=== PATIENT | female | born 1970 | race Hispanic/Latino ===

== ENCOUNTER 2024-10-15 18:17 | Inpatient (IN) | payer BC, OTHER ==
[~2024-10-15] VITALS: Ht 160 cm; Wt 92.0 kg
[~2024-10-15 18:17] MED LIST: CYCLOBENZAPRINE10 MG PO; MAALOX MAXIMUM355 ML PO; OMEPRAZOLE20 MG PO; PEPCID20 MG PO
[2024-10-15] MEDS ORDERED: OMEPRAZOLE20 MG PO (19:29)
[2024-10-15] MEDS ORDERED: ondansetron HCL 4 MG/2 ML VIAL IV ONE ×2 (19:30→21:15)
[2024-10-15 19:36] LABS: BASOPHILS 0.7 % (0-2); EOSINOPHILS 2.4 % (0-6); HEMATOCRIT 39.2 % (35.0-50.0); HEMOGLOBIN 13.6 g/dL (12.0-18.0); LYMPHOCYTES 21.5 % (24-44); MCH 30.6 (27-36); MCHC 34.6 g/dl (30-36); MCV 88.3 fl (81-99); MONOCYTES 7.1 % (0-12); NEUTROPHILS 68.3 % (39-80); PLATELET COUNT 231 K/uL (140-440); RBC 4.43 M/ul (4.3-5.7); RDW 13.8 (10.5-15.0)
[2024-10-15 19:43] LABS: ALBUMIN 3.3 g/dL (3.4-5.0); ALBUMIN/GLOBULIN RATIO 0.94 (1.1-2.4); ANION GAP 8.8 (7-21); BILIRUBIN, TOTAL 0.2 ng/dL (0.2-1.0); BUN/CREATININE RATIO 16.85 (6.0-28.6); CALCIUM 8.7 mg/dL (8.5-10.1); CREATININE, SERUM 0.89 mg/dL (0.55-1.02); MAGNESIUM 1.9 mg/dL (1.8-2.4); POTASSIUM 3.8 mmol/L (3.5-5.1); PROTEIN, TOTAL 6.8 g/dL (6.4-8.2)
[2024-10-15 20:43] LABS: BILIRUBIN, URINE NEGATIVE (negative); BLOOD/HGB, URINE SMALL (Negative); KETONE, URINE NEGATIVE (Negative); LEUK ESTERASE, URINE TRACE (negative); NITRITE, URINE NEGATIVE (negative)
[2024-10-15 20:53] LABS: BACTERIA, URINE NONE SEEN /hpf (negative); CASTS, URINE NONE SEEN \\lpf; COLLECTION TYPE, URINE CLEAN CATCH; CRYSTALS, URINE NONE SEEN (0-1+); EPITHELIAL CELLS, URINE SQUAMOUS 3+ /lpf (0-1+); REFLEX CULTURE, URINE No (No); WHITE BLOOD CELLS, URINE 0-1 /HPF (0-5)
[2024-10-15] MEDS ORDERED: SODIUM CHLORIDE 0.9% 1,000 ML IV SCH (21:15)
[2024-10-15] MEDS ORDERED: HYDROmorphone HCL 1 MG/ML SYR IV PRN ×2 (21:15→22:30)
[2024-10-15] MEDS ORDERED: CEFAZOLIN SODIUM 2 GM/20 ML SYR IV ONE (21:30)
[2024-10-15] MEDS ORDERED: FAMOTIDINE 20 MG/ 2 ML VIAL IV ONE (21:30)
[2024-10-15] MEDS ORDERED: LACTATED RINGER'S 1,000 ML IV SCH (22:30)
[2024-10-15] MEDS ORDERED: ondansetron HCL 4 MG/2 ML VIAL IV PRN (22:30)
--- NOTE | 2024-10-15 22:30 | NUR ---
pt ARRIVED TO THE FLOOR VIA STRETCHER. pt TRASFERED SELF TO THE BED. ASSESSMENT AND VITAL SIGNS DONE. AUTO CAMP ATTENDANT USED DASHA([id number]). pt DENIES ANY PAIN AT THIS TIME. IV ASSESSED, WNL. pt DENIES ANY OTHER NEEDS AT THIS TIME. CALL LIGHT WITHIN REACH.
[2024-10-15 22:31] VITALS: BP 131/70
[2024-10-15 23:15] VITALS: BP 131/70
[2024-10-16] VITALS (13 sets, daily range): BP systolic 108–119; BP diastolic 56–83
--- NOTE | 2024-10-16 00:54 | NUR ---
pt RESTING IN THE BED. pt DENIES ANY NEEDS AT THIS TIME. CALL LIGHT WITHIN REACH.
--- NOTE | 2024-10-16 02:19 | NUR ---
IN RM TO DO VITAL SIGNS. pt UP TO THE BR. SBA FOR LINE/TUBE MANAGEMENT. pt DENIES PAIN AT THIS TIME. CALL LIGHT WITHIN REACH. pt BACK TO BED.
--- NOTE | 2024-10-16 04:20 | NUR ---
pt RESTING IN THE BED WITH EYES CLOSED. RR EVEN AND UNLABORED. CALL LIGHT WITHIN REACH.
[2024-10-16] MEDS ORDERED: CEFAZOLIN SODIUM 1 GM/10 ML SYR IV SCH (05:00)
--- NOTE | 2024-10-16 05:05 | NUR ---
IN RM TO DO pt VITAL SIGNS AND ADMINISTER IV ABX. pt C/O 5/10 PAIN. PRN PAIN MEDS ADMINISTERED. pt DENIES ANY OTHER NEEDS AT THIS TIME. CALL LIGHT WITHIN REACH.
--- NOTE | 2024-10-16 07:33 | NUR ---
RECIEVED MORNING REPORT FROM DATABASE MANAGER RN. PT LAYING IN BED AWAKE WITH EYES OPEN. PT ASSISTED INTO THE RESTROOM SBA. PT TOLERATED AMBULATION WELL. PT RETURNED TO BED AND HAS NO CONCERNS AT THIS TIME CALL LIGHT WITHIN REACH.
--- NOTE | 2024-10-16 08:21 | NUR ---
PT LAYING IN BED WITH EYES OPEN PT REPORTS NO CURRENT NEEDS AT THIS TIME. PT REPORTS THEY ARE NOT IN ANY PAIN. PT CALL LIGHT WITHIN REACH.
--- NOTE | 2024-10-16 08:55 | NUR ---
PATIENT SLEEPING IN BED AT THIS TIME. ELECTROMECHANICAL ASSEMBLY TECHNICIAN CHARTED VITALS AND I&O'S. CALL LIGHT WITHIN REACH, NO FURTHER NEEDS AT THIS TIME.
[2024-10-16] MEDS ORDERED: CENTRUM ADULTS1 EACH PO (09:10)
[2024-10-16] MEDS ORDERED: VITAMIN B COMP1 EAC1 PO (09:10)
--- NOTE | 2024-10-16 09:10 | NUR ---
MED REC COMPLETE
--- NOTE | 2024-10-16 10:01 | NUR ---
THIS RN AND CELSA SANDERS ENTERED THE PT ROOM WITH MD BUCKLEY. MD BUCKLEY EXPLAINED TO THE PATIENT THEIR CURRENT ILLNESS AND THE POC MOVING FORWARD. THE PT WAS AGREEABLE TO THE POC MOVING FORWARD. PT HAS NO OTHER REQUESTS AT THIS TIME CALL LIGHT WITHIN REACH.
[2024-10-16] MEDS ORDERED: FAMOTIDINE 20 MG/ 2 ML VIAL IV SCH (10:08)
[2024-10-16] MEDS ORDERED: KETOROLAC TROMETHAMINE 30 MG/ML VIAL IV PRN (10:15)
[2024-10-16] MEDS ORDERED: LACTATED RINGER'S 1,000 ML IV SCH (10:15)
[2024-10-16] MEDS ORDERED: MORPHINE SULFATE 10 MG/ML VIAL IV PRN (10:15)
[2024-10-16] MEDS ORDERED: ondansetron HCL 4 MG/2 ML VIAL IV PRN (10:15)
[2024-10-16 10:26] LABS: BASOPHILS 0.8 % (0-2); EOSINOPHILS 1.3 % (0-6); HEMATOCRIT 39.3 % (35.0-50.0); HEMOGLOBIN 13.2 g/dL (12.0-18.0); LYMPHOCYTES 27.4 % (24-44); MCH 30.2 (27-36); MCHC 33.6 g/dl (30-36); MCV 89.8 fl (81-99); NEUTROPHILS 62.5 % (39-80); PLATELET COUNT 211 K/uL (140-440); RBC 4.38 M/ul (4.3-5.7); RDW 13.6 (10.5-15.0)
[2024-10-16 10:45] LABS: ALBUMIN 2.9 g/dL (3.4-5.0); ALBUMIN/GLOBULIN RATIO 0.88 (1.1-2.4); ANION GAP 6.8 (7-21); BILIRUBIN, TOTAL 0.8 ng/dL (0.2-1.0); BUN/CREATININE RATIO 10.29 (6.0-28.6); CALCIUM 8.3 mg/dL (8.5-10.1); CREATININE, SERUM 0.68 mg/dL (0.55-1.02); POTASSIUM 3.8 mmol/L (3.5-5.1); PROTEIN, TOTAL 6.2 g/dL (6.4-8.2)
--- NOTE | 2024-10-16 11:00 | NUR ---
CALLED PCP FOR MEDICAL RECORDS IN [place]. CLINIC SAID PT DOES NOT SEE A MERRY BUNN, BUT SEE A MD NAMED MITCH WHO NO LONGER WORKS THERE. PT WAS LAST SEEN AT THE CLINIC IN [place]. MEDICAL RECORDS AT THE CLINIC ARE NOT IN THEIR OFFICE TODAY. ONCE TRANSFERRED A VOICEMAIL WAS LEFT. NUMBER TO CLINIC IS [phone].
--- NOTE | 2024-10-16 11:12 | NUR ---
PATIENT IN BED AT THIS TIME. IC DESIGNER GATE ARRAYS ASSISTED PATIENT INTO BATHROOM AND THEN BACK TO BED. CALL LIGHT WITHIN REACH, NO FURTHER NEEDS AT THIS TIME.
--- NOTE | 2024-10-16 13:32 | NUR ---
PT LAYING IN BED AWAKE PT REPORTS THAT MEDICATION HELPED WITH HEADACHE AND REPORTS NO PAIN. PT IS WITH HER BEDSIDE. PT WAS ALSO GIVEN INFORMATION ON HER SURGERY IN [place]. PT HAS CALL LIGHT WITHIN REACH.
[2024-10-16] MEDS ORDERED: CEFAZOLIN SODIUM 2 GM/20 ML SYR IV SCH (14:00)
--- NOTE | 2024-10-16 14:21 | NUR ---
UR CLINICAL REVIEW: [facility], MEETS OBS [facility]15/24 @ 2125 ORDER MATCHES REG WILL SEND CLINICALS FOR AUTH WHEN REQUESTED. DC PLAN PENDING. 10/17/24
--- NOTE | 2024-10-16 14:30 | NUR ---
Spoke with pt and spouse using [employer] Service Team Member [phone] with Jatinder garrido. Pt lives in [place] in a house with 3 steps. She lives with her spouse and her son. Both can help her if needed after dc. She does not use any DME. She states they are struggeling as they have not worked in 2 months. She does use the food bank at times. They do not have SNAP. She is not aware of [employer]. They do not have shut off notices, but are behind on payments. I will get her infor for SNAP for number to apply over the phone, BLAZE, and call the [facility] to schedule a an appt and get a new pcp as hers left in
--- NOTE | 2024-10-16 14:33 | NUR ---
PT SITTING IN BED AWAKE WITH BED SIDE. PT DOESNT EXPRESS ANY PAIN AT THIS TIME. CALL LIGHT WITHIN REACH.
--- NOTE | 2024-10-16 14:51 | NUR ---
REPORT RECEIVED FROM CELSA MOLINA.
--- NOTE | 2024-10-16 15:12 | NUR ---
ECHO IS IN THE ROOM AT THIS TIME. PATIENT FAMILY MEMBER IS SITTING ON THE COUCH. CALL LIGHT AND PERSONAL BELONGINGS ARE WITHIN REACH.
[2024-10-16 15:26] LABS: TSH, 3RD GENERATION 0.614 uIU/mL (0.358-3.740)
--- NOTE | 2024-10-16 15:45 | NUR ---
ATTEMPTED TO CONTACT PCP OFFICE - [facility] TO GET RECORDS PER REQUESTED BY DR. BUCKLEY. UNABLE TO SPEAK WITH CLINIC, WILL ATTEMPT AGAIN TOMORROW. DID LEAVE VM TO SEE IF RECORDS COULD BE FAXED FOR OUR RECORDS FOR TOMORROW.
[2024-10-16] MEDS ORDERED: ACETAMINOPHEN 325 MG TAB PO PRN (16:00)
--- NOTE | 2024-10-16 16:10 | NUR ---
FULL ASSESSMENT COMPLETE AND DOCUMENTED IN THE CHART. PATIENT USES FAMILY MEMBER AN PSYCHIC READER THROUGHOUT THE PATIENT INTERACTION. PATIENT IS ALERT AND ORIENTED WITH NO COMPLAINTS OF PAIN. SENSATION INTACT WITH NO COMPLAINTS OF NUMBNESS OR TINGLING. PATIENT IS ON TELE #5. PATIENT IS BRADYCARDIC. OCCASSIONAL GALLOP AUSCULTATED. RADIAL PULSES ARE STRONG BILATERALLY. PATIENT IS CURRENTLY ON ROOM AIR WITH NO COMPLAINTS OF SOB. PATIENT IS NPO. BOWEL TONES ARE ACTIVE IN ALL FOUR QUADRANTS. RUQ TENDER AND GUARDED. MILD DISTENTION NOTED. LAST BM WAS 10/15/24. IV IN THE RAC FLUSHED WITH 10 ML NORMAL SALINE. LR IS INFUSING AT 85 ML/HR. SKIN INTACT. MICHEL PETERS ASSISTED PATIENT TO THE BATHROOM. PATIENT WITH VISITOR IN THE ROOM. PATIENT STATED NO FURTHER NEEDS AT THIS TIME. CALL LIGHT AND PERSONAL BELONGINGS ARE WITHIN REACH.
--- NOTE | 2024-10-16 16:18 | NUR ---
PATIENT IN BED AT THIS TIME. DATABASE REPORT WRITER WENT INTO PATIENTS ROOM TO ASSIST PATIENT TO BATHROOM. DATABASE REPORT WRITER THEN ASSISTED PATIENT BACK TO BED. CALL LIGHT WITHIN REACH, NO FURTHER NEEDS AT THIS TIME.
--- NOTE | 2024-10-16 17:59 | NUR ---
PATIENT IS LYING IN BED WITH THE LIGHT OFF. PATIENT WITH EYES OPEN AND RESPIRATIONS ARE EVEN AND UNLABORED. CALL LIGHT AND PERSONAL BELONGINGS ARE WITHIN REACH.
--- NOTE | 2024-10-16 18:43 | NUR ---
RN TOOK PATIENT IN CLEAR LIQUIDS AT THIS TIME DUE TO ORDER BEING CHANGED. PATIENT TO THEN BE NPO AT MIDNIGHT. PATIENT PROVIDED A SANDWICH BOX. PATIENT STATED NO FURTHER NEEDS AT THIS TIME. CALL LIGHT AND PERSONAL BELONGINGS ARE WITHIN REACH.
--- NOTE | 2024-10-16 19:28 | NUR ---
Received report from CELSA Bernabe. Pt resting quietly in bed, denies needs at this time.
--- NOTE | 2024-10-16 20:30 | NUR ---
SENIOR ACCOUNT DIRECTOR OTBAINED VITALS AND OUTPUT. PT STATES NO NEEDS AT THIS TIME. CALL LIGHT WITHIN REACH.
--- NOTE | 2024-10-16 21:00 | NUR ---
PT RESTING COMFORTABLY IN BED. DROWSY. LIBYAN SPEAKING. DENIES PAIN. LSC. HRR, RONNIE. TELEMETRY IN PLACE. BT HYPO, ABD MILDLY DISTENDED, MILDLY TENDER TO PALPATION. NPO FOR PROCEDURE TOMORROW. DENIES ANY NAUSEA. VOIDS WNL. IV RAC W/ LR @ 85MLS/HR. FAMILY AT BEDSIDE.
--- NOTE | 2024-10-16 22:33 | NUR ---
PT SLEEPING SOUNDLY, APPEARS COMFORTABLE. CALL LIGHT WITHIN REACH.
--- NOTE | 2024-10-16 22:49 | EKG ---
[facility] [address] [place], [place] [address] Signed Marked sinus bradycardia Abnormal ECG No previous ECGs available Confirmed by Jililan Carter DO ([id number]) on 10/16/2024 10:48:49 PM Electronically Signed By: JILLIAN CARTER DO 10/16/24 2249 PATIENT NAME: ENOCH BLEDSOE Electrocardiogram DATE OF : 74 PHYSICIAN: JILLIAN CARTER DO REPORT #: [id number] REPORT IS CONFIDENTIAL AND NOT TO BE RELEASED WITHOUT AUTHORIZATION
--- NOTE | 2024-10-16 22:49 | NUR ---
PT NEEDED TO USE BATHROOM. INDEPENDENT LIVING ADVISOR SBA TO BATHROOM. PT VOIDED AND IS BACK IN BED. OUTPUT MEASURED. PT STATES NO FURTHER NEEDS AT THIS TIME. CALL LIGHT WITHIN REACH.
[2024-10-17] VITALS (13 sets, daily range): BP systolic 98–149; BP diastolic 54–81
--- NOTE | 2024-10-17 00:53 | NUR ---
PT SLEEPING SOUNDLY, APPEARS COMFORTABLE. IVF INFUSING. NPO.
--- NOTE | 2024-10-17 02:11 | NUR ---
CONTRACT CONSULTANT OBTAINED VITALS AND OUTPUT. PT STATES NO NEEDS AND CALL LIGHT WITHIN REACH.
--- NOTE | 2024-10-17 04:00 | NUR ---
Pt sleeping soundly. Spouse asleep at bedside.
--- NOTE | 2024-10-17 04:23 | NUR ---
CALL LIGHT ANSWERED. PT NEEDED TO USE BATHROOM. REGULATOR ASSEMBLER SBA TO BATHROOM PT VOIDED AND BRUSHED TEETH. OUTPUT MEASURED AND PT BACK IN BED. REGULATOR ASSEMBLER OBTAINED VITALS AND OUTPUT. PT STATES NO FURTHER NEEDS AT THIS TIME. CALL LIGHT WITHIN REACH AND IN ROOM.
--- NOTE | 2024-10-17 04:54 | NUR ---
Dx: Cholecystitis w/ gall stones & asymptomatic bradycardia. Greenlandic speaking. NPO for surgery 10/17 w/ Dr. Becerra. Telemetry shows SB, 40-50's. IVF infusing. Hospitalist consulting for bradycardia. Spouse at bedside.
--- NOTE | 2024-10-17 05:24 | NUR ---
Pt awake, new bag LR maria luisa. Pt confirmed she received latvian version ebenezer education yesterday. Pt signed surgical consent w/ RN Antonia. Denies any further questions or concerns at this time. Denies pain/nausea. Remains NPO.
--- NOTE | 2024-10-17 05:35 | NUR ---
IV ATB ADMINISTERED PER EMAR. PT AWAKE, RESTING.
--- NOTE | 2024-10-17 07:33 | NUR ---
RECIEVED MORNING SHIFT CHANGE REPORT FROM CELSA EDGE. PT HAD JUST RETURNED FROM RESTROOM AND REPORTED NO PAIN AT THIS TIME. PT HAS NO CURRENT CONCERNS AND CALL LIGHT WITHIN REACH.
--- NOTE | 2024-10-17 09:00 | NUR ---
Spoke with pt and die out worker [phone]. Pt is not sure if she is having surgery. It was discussed in report they are needing medical records about her bradycardia work up. I called [facility] Medical records and they will check if they can find any info as pt states this was where she had a work up. Rn was also present in the room and discussed Dr. Bocanegra had reviewed this with the pt yesteray. [facility] will call or fax info.
--- NOTE | 2024-10-17 09:20 | NUR ---
IN PT ROOM WITH CASE MANAGEMENT WHILE GIVING SCHEDULED MEDS SEE EMAR. PT TOLD THIS RN AND CASE MANAGEMENT ABOUT WHERE SHE HAD HER HEART LOOKED AT AND PT RESPONDED VAL[facility], CHARGE NURSE MADE AWARE OF THIS AND IS WORKING ON OBTAINING MEDICAL RECORDS. PT HAS NO CONCERNS AT THIS TIME AND CALL LIGHT WITHIN REACH.
--- NOTE | 2024-10-17 10:11 | NUR ---
SISSY BUCKLEY/Sourav MEDRANO, RN, TO CHANGE TO INPATIENT STATUS.
--- NOTE | 2024-10-17 10:18 | NUR ---
PT SITTING UPRIGHT IN BED PT EXPRESSED NO NEEDS AT THIS TIME. IS STILL BED SIDE. PT HAS CALL LIGHT WITHIN REACH.
--- NOTE | 2024-10-17 10:31 | NUR ---
I/O AND VS COMPLETE - DRAINAGE ENGINEER [id number] CHRIS USED TO TRANSLATE CARES TO PT. PT REPORTS FRUSTRATION OF NOT KNOWING WHAT THE PLAN OF CARE IS IF SHE IS HAVING SURGERY OR NOT. CHART REVIEWED, BASIC PLAN RELAYED AND INFORMED PT I NEED TO FIND PRIMARY RN TO FIND OUT FURTHER DETAILS OF PLAN. PT STATES UNDERSTANDING. STATES IF SHE IS NOT HAVING SURGERY TODAY SHE WOULD LIKE TO DISCHARGE HOME. LEFT WITH CALL LIGHT IN REACH.
--- NOTE | 2024-10-17 10:59 | NUR ---
UR CLINICAL REVIEW: [facility], MEETS INPATIENT FOR GENERAL ADMISSION CRITERIA HERNANDEZ [employer] PPO FROM OBS TO INPT 10/17/24 @ 1012 ORDER MATCHES REG WILL SEND CLINICALS FOR AUTH IF REQUESTED. PLAN TO DC TO HOME WHEN MEDICALLY STABLE. 10/19/24
--- NOTE | 2024-10-17 11:00 | NUR ---
I have not received records from [facility]. Tracey, Camera Tuning Engineer, attempting to get records.
--- NOTE | 2024-10-17 11:50 | NUR ---
PT SITTING IN BED, PT HAS NO REQUESTS AT THIS TIME. PT CALL LIGHT WITHIN REACH.
--- NOTE | 2024-10-17 13:44 | NUR ---
IN WITH RAUL TREVINO, PHARMACY AND RT TO COMPLETE ATROPINE CHALLENGE. PTS HEART RATE PRIOR TO ATROPINE 55, WITH BP OF 154/71. GIVEN 1 MG OF ATROPINE IN 2 DOSES OF 0.5 MG OVER ABOUT A MIN. PT REMAINED ON 12 LEAD EKG WELL TELE TO CCU MONITORING. PTS HEART RATE AFTER FULL 1MG WAS GIVEN INCREASED TO 90 BBP WITH BP OF 130/84. PT REPORTS SHE DOES FEEL THOUGH HER HEART IS RACING, EXPLAINED THIS IS NORMAL. DENIES PAIN.
[2024-10-17] MEDS ORDERED: ATROPINE SULFATE 1 MG/10 ML SYR IV ONE (13:45)
--- NOTE | 2024-10-17 14:12 | NUR ---
PT MEDICATION ADMINISTERED (SEE EMAR). PT HAS NO CURRENTS NEEDS AT THIS TIME WITH CALL LIGHT IN REACH. STOCK DRIER TENDER DELEGATED TO ASSIST PT IN PRE OP WIPE DOWN, GOWN CHANGE, AND BEDDING CHANGE. PT GIVEN VISUAL INSTRUCTION SHEET WELL TO HELP WITH LANGUAGE BARRIER.
--- NOTE | 2024-10-17 14:15 | NUR ---
PT WIPE DOWN COMPLETED BY PATIENT IN BATHROOM, NEW GOWN/BEDDING CHANGED. INSULATOR APPRENTICE UTILIZED TO EXPLAIN PROCEDURE AND WIPE DOWN PROCESS. PT DENIES ANY FURTHER QUESTIONS AT THIS TIME.
[2024-10-17] MEDS ORDERED: SEVOFLURANE 250 ML BTL INH ONE (14:16)
[2024-10-17] MEDS ORDERED: iopamidoL 30 ML VIAL ONE (14:57)
[2024-10-17] MEDS ORDERED: SODIUM CHLORIDE 0.9% 40 ML IV ONE (14:58)
--- NOTE | 2024-10-17 15:00 | NUR ---
CELSA GOODMAN HERE TO TAKE PATIENT TO SURGERY. REPORT GIVEN.
[2024-10-17] MEDS ORDERED: LIDOCAINE HCL 2% 5 ML SDV ONE (15:23)
[2024-10-17] MEDS ORDERED: DEXAMETHASONE SOD PHOS 4 MG/ML VIAL ONE (15:23)
[2024-10-17] MEDS ORDERED: propofoL 200 MG/20 ML VIAL ONE (15:23)
[2024-10-17] MEDS ORDERED: ROCURONIUM BROMIDE 50 MG/5 ML SYR ONE (15:23)
[2024-10-17] MEDS ORDERED: ondansetron HCL 4 MG/2 ML VIAL ONE (15:23)
[2024-10-17] MEDS ORDERED: ACETAMINOPHEN 1,000 MG/100 ML VIAL ONE (15:23)
[2024-10-17] MEDS ORDERED: KETOROLAC TROMETHAMINE 30 MG/ML VIAL ONE (15:23)
[2024-10-17] MEDS ORDERED: LIDOCAINE HCL 1% 30 ML SDV ONE (15:23)
[2024-10-17] MEDS ORDERED: fentaNYL citrate 100 MCG/2 ML VIAL ONE ×2 (15:25→16:43)
[2024-10-17] MEDS ORDERED: SUGAMMADEX SODIUM 200 MG/2 ML ML ONE (16:43)
[2024-10-17] MEDS ORDERED: LACTATED RINGER'S 1,000 ML IV ONE (16:58)
[2024-10-17] MEDS ORDERED: NALOXONE HCL 0.4 MG/ML VIAL ONE (17:30)
[2024-10-17] MEDS ORDERED: ondansetron HCL 4 MG/2 ML VIAL IV PRN (18:15)
[2024-10-17] MEDS ORDERED: IBLOOD GLUCOSE TEST STRIP 1 EA TEST VI PRN (18:15)
[2024-10-17] MEDS ORDERED: NALOXONE HCL 0.4 MG SYR IV PRN (18:15)
[2024-10-17] MEDS ORDERED: fentaNYL citrate 50 MCG/ML SDV IV PRN (18:15)
[2024-10-17] MEDS ORDERED: ACETAMINOPHEN 500 MG TAB PO PRN (19:00)
[2024-10-17] MEDS ORDERED: OXYCODONE HCL 5 MG TAB PO PRN (19:00)
[2024-10-17] MEDS ORDERED: IBUPROFEN 600 MG TAB PO PRN (19:00)
--- NOTE | 2024-10-17 19:00 | NUR ---
PT BACK FROM SURGERY, REPORT FROM CELSA GOODMAN. CITY SECRETARY USED. ASSESSED SURGICAL SITES, DRESSINGS INTACT, KEYON DRAIN INTACT, SCANT DRAINAGE SEROSANG DRAINAGE IN DRAIN.
--- NOTE | 2024-10-17 19:39 | NUR ---
10/17/24 193 Amy Orozco 1743 PT ARRIVED TO PACU RESP EVEN AND UNLABORED. PT REACTIVE TO TACTILE STIMULI AND PT STARTS TO ROLL TO HER RIGHT SIDE AND MOANING. PT GRABS BP CUFF AND PULLS IT OFF. RN PROTECTING DRAIN SITE ON ABD. 174 TIP FIXER USED (ANTONIO [id number]), PT ASKED TO TRY AND KEEP HER ARM STILL FOR A BLOOD PRESSURE, PT UNABLE TO FOLLOW COMMANDS. [employer] CONSULTANT AND SECOND RN AT BEDSIDE TRYING TO REORIENT PT TO PACU WITH INTURPATOR. PT EYES REMAIN CLOSED AND LAYING ON RIGHT SIDE. GRIMACING OFF AND ON NOTED. 1755 BP WITHIN NORMAL LIMITS AND PT OPENS HER EYES, PT NODS YES TO PAIN. PT EASILY FALLS BACK TO SLEEP. 1800 MD AT BEDSIDE, PT WAKES AND NODS TO EDUCATION GIVEN BY MD. PT REPORTS 8/10 PAIN AND "LITTLE" NAUSEA. PT REPORTS SHE NEEDS TO VOID. BADPAN PLACED AND PT ENCOURAGED TO VOID. 1811 PAIN MEDICATION GIVEN, PT ASKED FOR THE BEDPAN TO REMAIN IN PLACE. SHE IS UNABLE TO VOID AT THIS TIME. EDUCAITON GIVEN. PT REPORTS SHE COULD VOID IF SHE GOT UP TO THE BATHROOM. 1820 PT UP TO SIDE OF BED AND IS STEADY ON HER FEET. PT REPORTS PAIN IS 8/10 BUT WANTS TO WALK TO BATHROOM. RN HELPS PT TO BATHROOM AND VOID NOTED. O2 REMOVED FOR WALK TO BATHROOM. BEDPAN REMOVED FROM BED. 1830 PT RETURNS TO BED AND O2 HIGH 80S, 2L NC PLACED BACK ON AND DEEP BREATHING ENCOURAGED. O2 INCREASED TO LOW 90S. WARM BLACKETS GIVEN. 1838 PAIN MEDICATION GIVEN, PT REPORTS NO CHANGE IN PAIN 8/10 BUT NAUSEA IS BETTER. 1845 PLAN OF CARE DISCUSSED AND PT SIPPING WATER, PT REPORTS PAIN IS 6-7/10 AND TOLERABLE AT THIS TIME. VSS ON 2L NC. 30ML LITE RED DRAINAGE NOTED FROM DRAIN AND DRESSED REPLACED AROUND DRAIN SITE WITH A/C TECHNICIAN. 1900 REPORT GIVEN WITH TIP FIXER AND AT BEDSIDE. ALL QUESTIONS ANSWERED AND PICTURES GIVEN. BED PLUGGED IN AND CALL LIGHT WITHIN REACH.
--- NOTE | 2024-10-17 19:41 | NUR ---
PT AWAKE, CROATIAN SPEAKING ONLY, THIS NURSE TRANSLATING, PT UNDERSTANDING VERY WELL. IVF INFUSING RFA. TOLERATING SIPS OF WATER AND ICE CHIPS, WILL ADVANCE DIET TOPLERATED, NO N/V AT THIST JU. 3 LAP SITES WITH STERI STRIPS, KEYON ON R LOW ABD W SS DRAINAGE. ABD SOFT, ISABEL, TENDER BUT DENIES NEED FOR PAIN MED . SCDS IN PLACE. TELE#[address]
--- NOTE | 2024-10-17 20:14 | NUR ---
IN ROOM PER REQUEST OF PRIMARY RN TO COLLECT POST OP VS, VSS. pt AWOKE TO VOICE. IN ROOM AND CALL LIGHT IN REACH.
--- NOTE | 2024-10-17 22:38 | NUR ---
2201 medicated w Oxycodone 5mg po and Ibuprofen 600mg po per abd pain. abd soft, tender, nina, denies passing gas. IVf infusing and SCD's in place. tolerating jello, pudings and apple sauce.
--- NOTE | 2024-10-17 22:39 | NUR ---
Up to BRP, voided, QS, back to bed, tolerated well. scds in place, IVF infusing. Helps with repositioning in bed. rooming in
[2024-10-18] VITALS (7 sets, daily range): BP systolic 107–122; BP diastolic 61–90
--- NOTE | 2024-10-18 00:23 | NUR ---
RESTING, NO S/SX DISTRESS, EYES CLOSED, IVF ISNFUING, SCDS IN PLACE. ROOMING IN. HAS TOLERATED DIET WELL, NO N/V
--- NOTE | 2024-10-18 01:43 | NUR ---
STOREKEEPER HELPER OBTAINED VITALS AND I&O. PT STATES NO NEEDS AT THIS TIME. CALL LIGHT WITHIN REACH.
--- NOTE | 2024-10-18 02:24 | NUR ---
Resting, eyes closed, no s/sx distress. IVF infusing. scds in place.
--- NOTE | 2024-10-18 03:31 | NUR ---
Awake, c/o abd pain, medicated with Tylenol and Oxycodone 10mg po. abd soft, tender, ISABEL, denies passing gas. abd lap sites intact. IVF infusing. scds in place, tele#[address], SB, denies lightheadness, low HR normal for pt.
[2024-10-18 05:16] LABS: BASOPHILS 0.7 % (0-2); EOSINOPHILS 0.1 % (0-6); HEMATOCRIT 40.4 % (35.0-50.0); HEMOGLOBIN 13.6 g/dL (12.0-18.0); LYMPHOCYTES 11.7 % (24-44); MCHC 33.6 g/dl (30-36); MCV 89.4 fl (81-99); MONOCYTES 4.4 % (0-12); NEUTROPHILS 83.1 % (39-80); PLATELET COUNT 206 K/uL (140-440); RBC 4.52 M/ul (4.3-5.7); RDW 13.7 (10.5-15.0)
[2024-10-18 05:36] LABS: ALBUMIN 2.8 g/dL (3.4-5.0); ALBUMIN/GLOBULIN RATIO 0.8 (1.1-2.4); ANION GAP 9.9 (7-21); BILIRUBIN, TOTAL 0.5 ng/dL (0.2-1.0); BUN/CREATININE RATIO 12.5 (6.0-28.6); CALCIUM 8.1 mg/dL (8.5-10.1); CREATININE, SERUM 0.8 mg/dL (0.55-1.02); POTASSIUM 3.9 mmol/L (3.5-5.1); PROTEIN, TOTAL 6.3 g/dL (6.4-8.2)
--- NOTE | 2024-10-18 06:05 | NUR ---
Awake, visiting with family via phone. turns and repositions self in bed. On room air, abd soft, tender, lap sites intact, denies passing gas. no c/o abd pain or n/v. tolerating fresh fluids. scds in place. KEYON 30cc ss drainage. at bedside
--- NOTE | 2024-10-18 07:05 | NUR ---
PT CALLED DAUGHTER TO TRANSLATE THIS RN AND CELSA MOLINA WALKED IN ROOM. PT STATES SHE WANTS TO ORDER FOOD BECAUSE "SHE IS HUNGRY AND WE DID NOT FEED HER". INFORMED PT THAT IRON RAMIREZ NURSE GAVE A MENU AND TO ORDER BEFORE 0630 BUT THIS WOULD CALL AND SEE IF THEY CAN ADD ANYTHING. PT REQUESTED TO HAVE A SANDWICH ORDERED. THE KITCHEN NOTIFIED.
--- NOTE | 2024-10-18 07:40 | NUR ---
RECIEVED MORNING REPORT FROM CELSA RAMIREZ. PT SITTING IN BED AWAKE, ASSISTED PT IN ORDERING BREAKFAST. PT HAS NO PAIN AND IS EAGER TO GO HOME TODAY IF DC'D. PT CALL LIGHT WITHIN REACH AND NO FURTHER CONCERNS AT THIS TIME.
--- NOTE | 2024-10-18 08:30 | NUR ---
PT SITTING IN BED EATING BREAKFAST, PT TOLERATED WELL. PT CALLED SON WHO SPEAKS BOTH GRENADIAN AND K[place]AKH TO HELP TRANSLATE PER PT REQUEST. PT HAS NO CONCERNS AT THIS TIME. CALL LIGHT WITHIN REACH.
--- NOTE | 2024-10-18 09:24 | NUR ---
pt UP IN CHAIR. VSS. SPO2 90% ON RA. PRIMARY RN NOTIFIED. SBA TO RESTROOM FOR VOID AND ORAL CARE. KEYON DRAIN STRIPPED, EMPTIED, 8 MLS SANGUINOUS DRAINAGE. DENIES PAIN. BACK IN CHAIR. PRIMARY RN IN ROOM FOR ASSESSMENT.
--- NOTE | 2024-10-18 09:53 | NUR ---
PT SITTING UP IN CHAIR AT THE MOMENT. PT USED SON SENIOR SVP PER HER REQUEST. PT INFORMED THAT SHE NEEDS TO WALK SOON AND SHE WAS AGREEABLE. PT ALSO REPORTED THAT SHE IS PASSING GAS. PT HAS NO CONCERNS AT THIS TIME CALL LIGHT WITHIN REACH.
[2024-10-18] MEDS ORDERED: IBUPROFEN600 MG PO (10:48)
[2024-10-18] MEDS ORDERED: OXYCODONE HCL5 MG PO (10:49)
[2024-10-18] MEDS ORDERED: ACETAMINOPHEN500 MG PO (10:49)
--- NOTE | 2024-10-18 16:33 | OR ---
[facility] [address] [place], [place] [address] Signed DATE OF OPERATION: 10/17/2024 SURGEON: Genevieve Buckley MD PREOPERATIVE DIAGNOSES: 1. Acute calculous cholecystitis (recurrent). 2. Asymptomatic bradycardia atropine responsive. POSTOPERATIVE DIAGNOSES: 1. Acute calculous cholecystitis (recurrent). 2. Asymptomatic bradycardia atropine responsive. 3. Incarcerated supraumbilical hernia (properitoneal fat without strangulation defect 2 cm). PROCEDURES: 1. Laparoscopic cholecystectomy with intraoperative cholangiogram; prolonged, complicated, and difficult. 2. Surgeon-directed fluoroscopy. 3. Repair of incarcerated supraumbilical hernia without mesh (defect size 2 cm), separate incision. ANESTHESIA: General endotracheal; Melissa Blackwell CRNA and local 10 mL of 0.25% Marcaine with epinephrine. INDICATIONS: This 54-year-old woman speaks little, if any Turkish. She lives in [place], [place] and has been evaluated for symptomatic gallstones previously. This is was noted to be a [facility]. She had a full cardiac evaluation for asymptomatic bradycardia in July, which included an echocardiogram, but records were not available to us despite significant efforts to obtain them. Evaluation in our hospital for her asymptomatic bradycardia (heart rate between 41 and 50) showed her to have normal thyroid function. An echocardiogram that showed left atrial enlargement did show an ejection fraction of 65%. She underwent an atropine test earlier today, which I attended, which showed her heart rate to respond to atropine. Subsequently, her medical records from [facility] were ultimately obtained and there was no apparent contraindication to general anesthesia and on that basis she has offered cholecystectomy preferred by laparoscopic approach. The risk of bleeding, infection, bile duct injury, need for open procedure, need for common duct exploration and so forth were all reviewed in detail. She understands and wished to proceed. Electronically Signed By: GENEVIEVE BUCKLEY MD 10/18/24 1638 PATIENT NAME: ENOCH BLEDSOE OPERATIVE REPORT DATE OF : 74 REPORT #: [id number] PHYSICIAN: GENEVIEVE BUCKLEY MD PCP: ENDER SOUSA MD REPORT IS CONFIDENTIAL AND NOT TO BE RELEASED WITHOUT AUTHORIZATION [facility] [address] [place], [place] [address] Signed FINDINGS: The gallbladder was quite markedly inflamed and densely adherent to omentum. Had she been able to have surgery at her presentation, I suspect most of this would not be a problem, but it was significantly challenging today. Cholangiogram showed free flow of contrast in the biliary tree with no filling defect or biliary problem. She had a relatively long cystic duct, some of which has retained ultimately. The liver itself was normal. The gallbladder once excised showed two large yellow mulberry gallstones. Not mentioned previously was the finding of an incarcerated umbilical hernia. This was concurrently repaired through a separate incision in the supraumbilical area without implantation of mesh; defect was approximately 2 cm. The operation was prolonged, complicated, and difficult on the basis of her extent of inflammation and so forth it was accomplished safely. A drain was placed. DESCRIPTION OF PROCEDURE: The patient was brought to the operating room, given a general endotracheal anesthetic. She did not have any untoward bradycardia. Through the course of the operation, she did not require atropine or glycopyrrolate or other agents for heart rate. She remained hemodynamically stable throughout. The abdomen was prepared with chlorhexidine solution and draped sterilely. Notable was an umbilical hernia, which was not reducible. It did not appear to be a hollow viscus based on clinical exam. An infraumbilical incision was made and using an open Kateryna cannula technique. Pneumoperitoneum was achieved to a level of 10 mmHg with carbon dioxide gas. She suffered no bradycardic episode with the pneumoperitoneum. The gallbladder was largely obscured from view at that point. Three additional trocars were placed in usual configuration in the subxiphoid, right midclavicular, and right anterior axillary line. The gallbladder was ultimately revealed and showed quite marked inflammation and edema and dense omental adhesions to its undersurface. The gallbladder was still able to be grasped and elevated cephalad and omental adhesions were taken down with blunt and electrocautery dissection. Elevation of the gallbladder was sequentially accomplished upon taking down the omentum. Once the gallbladder was fully extended cephalad, blunt dissection was undertaken in the infundibulum of the gallbladder with lateral retraction, ultimately identifying the infundibulum well and the cystic duct itself. The cystic duct was a bit enlarged compared to usual. Dissection was undertaken more fully to the midline, still showing a somewhat dilated duct, but quite clear the cystic duct. Photographs were taken. Clips had been applied to the cystic arterial branches adherent to the gallbladder allowed for good dissection. Ultimately, a clip was applied across gallbladder cystic duct junction and transverse choledochotomy was made. Egress of clear bile was noted. Electronically Signed By: GENEVIEVE BUCKLEY MD 10/18/24 1633 PATIENT NAME: ENOCH BLEDSOE OPERATIVE REPORT DATE OF : 74 REPORT #: [id number] PHYSICIAN: GENEVIEVE BUCKLEY MD PCP: ENDER SOUSA MD REPORT IS CONFIDENTIAL AND NOT TO BE RELEASED WITHOUT AUTHORIZATION [facility] [address], [place] [address] Signed Using an Le type cholangiocatheter system, intraoperative cholangiography was undertaken showing free flow of contrast in the biliary tree with prompt emptying into the duodenum. There was no sign of filling defect or biliary anomaly. The cystic duct itself was rather lengthy. Further dissection medially was deemed inadvisable as the cystic duct that was present was healthy and the extent of inflammation was significant. The cystic duct was clipped temporarily with two clips. Cystic duct divided and the cystic duct was elevated and a PDS endo-loop applied around the cystic duct to assure good control of biliary tree. The gallbladder was then dissected free in a retrograde fashion using electrocautery. The gallbladder did have a small leakage of bile at one point, but not much. The gallbladder was placed in an endobag and extracted through the infraumbilical port site, opened on the back table and found to have gallbladder sludge and two large yellow mulberry shaped gallstones. Mucosa was quite markedly inflamed. Irrigation was undertaken in subhepatic space and excess irrigation fluid suctioned free. There was no sign of bile leak or bleeding. Given the extent of dissection, a 7 mm flat Veto drain was placed in the subhepatic space. There was some blood leakage at the epigastric port and on that basis, a Luis Alberto-Roseline closure device was used to secure the fascia quite hemostatically using 0 Vicryl tie and the trocar sites were normal. The drain had been placed in the subhepatic space, it was secured to the skin with a nylon suture and attached to bulb suction later. The trocars were removed and closure of the infraumbilical fascial incision planned. Digital examination in the umbilical area did confirm what appeared to be properitoneal fat or omental fat that was incarcerated in the hernia defect at the umbilicus. The infraumbilical fascial incision was reapproximated with an interrupted 0 Vicryl suture. A curvilinear incision was made cephalad to the umbilicus and through the separate stab incision. Blunt dissection was undertaken ultimately identifying the incarcerated fatty tissue. This was circumferentially freed and measured back approximately 4 cm x 3 cm once fully extracted. The fascial edges were freed completely allowing for reduction of the properitoneal fat. The fascial edges were then repaired with an interrupted 0 Prolene suture in a horizontal mattress configuration. A 10 mL of 0.25% Marcaine with epinephrine was injected into the various wounds. The skin was then closed with interrupted 3-0 Vicryl and Steri-Strips were applied. An Acticoat dressing was applied to the midline incision sites as well as the exit site from the 7 mm flat Veto drain. She was ultimately extubated and transferred to recovery room in good condition having suffered no complications. Sponge, needle, and instrument counts were reported as correct x3. The operation was prolonged, complicated, and difficult mostly to the extent of significant inflammation of the gallbladder and other factors as previously noted, but was accomplished safely and without known complication. The drain was draining serosanguineous fluid at conclusion of the procedure. Electronically Signed By: GENEVIEVE BUCKLEY MD 10/18/24 1633 PATIENT NAME: ENOCH BLEDSOE OPERATIVE REPORT DATE OF : 74 REPORT #: [id number] PHYSICIAN: GENEVIEVE BUCKLEY MD PCP: ENDER SOUSA MD REPORT IS CONFIDENTIAL AND NOT TO BE RELEASED WITHOUT AUTHORIZATION [address] [address] Signed MD YRIS Rivera/FADUMO /[id number] cc: Adam Aragon Hospitalist MD Ender Real MD Copies: CORTEZ ASTORGA MD, STEVEN F MD ~ Electronically Signed By: GENEVIEVE BUCKLEY MD 10/18/24 1633 PATIENT NAME: SUZANNE ENOCH BRADSHAW OPERATIVE REPORT DATE OF : 74 REPORT #: [id number] PHYSICIAN: GENEVIEVE BUCKLEY MD PCP: ENDER SOUSA MD REPORT IS CONFIDENTIAL AND NOT TO BE RELEASED WITHOUT AUTHORIZATION
--- NOTE | 2024-10-18 16:33 | HP ---
[facility] [address] [place], [place] [address] Signed ADMISSION DATE: 10/15/2024 REASON FOR ADMISSION: Chronic recurrent calculus cholecystitis and asymptomatic bradycardia. HISTORY OF PRESENT ILLNESS: This 54-year-old woman speaks rather minimal Icelandic. She is from [place], [place], generally works in the [employer] there. She is , has five sons, all in their 20s and 30s. She was interviewed by me with a telephone access service representative service. She was initially seen at approximately 8:00 p.m. in the emergency room by Dr. Astorga with complaints of recurrent epigastric and right subcostal pain. Findings were highly suggestive of acute cholecystitis. She is known to have cholelithiasis in the past. She had normal liver enzymes and lipase level. She is said to have been evaluated for cholecystectomy elsewhere, possibly [facility], but operation was deferred pending evaluation of bradycardia. Quite notably, she has no exertional chest pain, no shortness of breath or other symptoms related to her bradycardia. She is to get an outpatient Holter monitor, but based on what she told me, she never followed through in doing so. She was directly admitted to the hospital, put on IV antibiotics, IV medication and kept n.p.o. anticipating cholecystectomy once her heart rate issue is better characterized. At present, she is feeling reasonably well. She does not have pain to the level of when she was admitted. PAST MEDICAL HISTORY: Includes reflux disease for which she takes omeprazole. She does not smoke and drinks alcohol only occasionally. She has never had surgery. She is and lives in the [facility]. She is postmenopausal. PHYSICAL EXAMINATION: GENERAL: Pleasant white woman who looks to be nontoxic in every way. VITAL SIGNS: Temperature is 97.7, pulse 49 to 50, blood pressure 108/83. NECK: Trachea is midline. CHEST: Clear. HEART: Regular without murmur. ABDOMEN: Obese, but soft. There is mild tenderness in the right subcostal area. She has no ascites or mass. EXTREMITIES: Show no clubbing, cyanosis, or edema. Electronically Signed By: GENEVIEVE BUCKLEY MD 10/18/24 1633 PATIENT NAME: ENOCH BLEDSOE HISTORY AND PHYSICAL DATE OF : 74 REPORT #: [id number] PHYSICIAN: GENEVIEVE BUCKLEY MD PCP: ONI SOUSA MD REPORT IS CONFIDENTIAL AND NOT TO BE RELEASED WITHOUT AUTHORIZATION [facility] [address] [place], [place] [address] Signed LABORATORY STUDIES: Today showed a white count of 7.8, hematocrit 39.3, platelets 211,000. Chem profile was essentially normal. AST is elevated from 16 to 116 today; previously ALT 25, now 88. Lipase was 43 yesterday. Beta HCG was negative. Bilirubin normal at 0.8, previously 0.2. IMAGING STUDY: Included a gallbladder ultrasound October 15 which showed a somewhat thickened gallbladder with what appeared to be stone material in the infundibulum. Interpretation by the radiologist describes cholelithiasis without findings of acute cholecystitis. ASSESSMENT: The patient does have acute cholecystitis with gallstones. Cholecystitis is a clinical diagnosis, not necessarily radiographic one. She does have persistent tenderness in the right upper abdomen. I discussed with her through the paraprofessional interpreter the problem at hand and recommendation of treatment to include cholecystectomy. This would either be from a laparoscopic or an open approach. The risk of bleeding, infection, bile duct injury, need for open procedure and need for common duct exploration were also reviewed. A gallbladder booklet was given to her in Burmese as well. The only issue related to scheduling the operation is her apparent long-standing bradycardia with a pulse rate between 42 and 50. An EKG was performed under my direction, which showed sinus bradycardia, heart rate of 42. Final interpretation is pending quite notably. There is no evidence of ischemic change to my examination. She does have family history of coronary artery disease in her father apparently who had what sounds like congestive heart failure. Additionally, I did attempt to obtain records from her primary care office in the [facility]. The medical records department is not open today for whatever reason and therefore, we have no other records available at this time. I will consult Dr. Aragon, hospitalist to make his assessment as to the finding of asymptomatic sinus bradycardia. I think it is highly probable she would tolerate operation and general anesthesia despite her bradycardic situation, but his opinion will be most welcome under the circumstances. Electronically Signed By: GENEVIEVE BUCKLEY MD 10/18/24 1633 PATIENT NAME: ENOCH BLEDSOE HISTORY AND PHYSICAL DATE OF : 74 REPORT #: [id number] PHYSICIAN: GENEVIEVE BUCKLEY MD PCP: ONI SOUSA MD REPORT IS CONFIDENTIAL AND NOT TO BE RELEASED WITHOUT AUTHORIZATION [address] [address] Signed Genevieve Buckley MD JM/MODL /[id number] cc: MD Dr. Mahesh Real Copies: CORTEZ ASTORGA MD ~ Electronically Signed By: GENEVIEVE BUCKLEY MD 10/18/24 1633 PATIENT NAME: ENOCH BLEDSOE HISTORY AND PHYSICAL DATE OF : 74 REPORT #: [id number] PHYSICIAN: GENEVIEVE BUCKLEY MD PCP: ONI SOUSA MD REPORT IS CONFIDENTIAL AND NOT TO BE RELEASED WITHOUT AUTHORIZATION
--- NOTE | 2024-10-19 15:20 | DS ---
[facility] [address] [place], [place] [address] Signed ADMISSION DATE: 10/17/2024 DISCHARGE DATE: 10/18/2024 REASON FOR ADMISSION: Acute calculous cholecystitis and asymptomatic persistent bradycardia. HISTORY OF PRESENT ILLNESS: This 54-year-old woman speaks rather minimal Togolese. She is from [place], [place]. She presented to the emergency room with right upper abdominal pain, evaluated by Dr. Stein with complaints of epigastric and right subcostal pain. She had been evaluated for symptomatic gallstones in the past, ultimately revealed to be [facility] in the [facility]. She was deferred operation pending evaluation for asymptomatic bradycardia with a general heart rate of between 41 and 48. She ultimately was found to have undergone evaluation, but she did not know the results, but had no surgery scheduled for that on that basis. Her evaluation currently includes a significant epigastric right subcostal pain and feeling very poorly. She is admitted for further evaluation and care. PERTINENT PHYSICAL EXAMINATION: GENERAL: Showed a pleasant woman who looks to be nontoxic. VITAL SIGNS: Temperature 97.7, pulse 49 to 50, but as low as 41 with a blood pressure 108/83. CHEST: Clear. HEART: Regular without murmur. ABDOMEN: Obese, but soft. There is tenderness in right subcostal area. There is no mass or ascites. LABORATORY STUDIES: Showed a white count of 7.8, hematocrit 39.3, platelets 211,000 Chem profile normal. AST elevated from 16 to 116 within 12 hours of admission. ALT elevated from 25 to 88. Lipase was 43 on admission. Beta HCG negative. Bilirubin normal at 0.8, previously 0.2. Evaluation did include a gallbladder ultrasound through the emergency room, which showed a somewhat thickened gallbladder, what appeared to be stone material in the infundibulum. HOSPITAL COURSE: The patient had clinical findings of acute cholecystitis. Consultation was undertaken with Dr. Aragon, hospitalist for further assessment of her bradycardia. Possibly due to Electronically Signed By: GENEVIEVE BUCKLEY MD 10/19/24 1520 PATIENT NAME: ENOCH BLEDSOE DISCHARGE SUMMARY DATE OF : 74 REPORT #: [id number] PHYSICIAN: GENEVIEVE BUCKLEY MD PCP: ONI SOUSA MD REPORT IS CONFIDENTIAL AND NOT TO BE RELEASED WITHOUT AUTHORIZATION [facility] [address] [place] [id number] Signed the new year timing and so fourth notes were unavailable to us from her evaluation elsewhere. She did undergo thyroid testing, which showed no hyperthyroidism or hypothyroidism and ultimately an echocardiogram performed which showed enlarged left atrium but otherwise good ejection fraction and no other abnormalities. A bedside atropine test was undertaken administering 0.5 and ultimately 1.0 mg atropine intravenously with cardiac monitoring showing elevation of her heart rate to approximately 89 to 92, indicative that she would likely be responsive to medication should significant bradycardia occur during operation. On October 17, 2024, she underwent laparoscopic cholecystectomy with intraoperative cholangiogram. The gallbladder was quite markedly inflamed with dense adhesions from omentum and so forth. The gallbladder once excised did show two large yellow mulberry type gallstones. Cholangiogram was normal. A drain was placed. She had no significant bradycardic issues while under anesthesia and no medications for bradycardia were specifically given for it either. She additionally underwent repair of an incarcerated 2 cm umbilical hernia through incision. The following day, she was feeling quite well. The drain was removed and she was able to be discharged to home. She was advised after I personally spoke with her daughter (who speaks Togolese well) to avoid lifting more than 20 pounds for the next two weeks. She is permitted to shower in 24 hours and she should keep Steri-Strips on. An Acticoat dressing at the area of the umbilicus should be removed tomorrow. She will call on Sunday to arrange for a followup in my office for four weeks more or less. She should bring an Togolese-speaking family member with her further visit to facilitate communication. Of special note, the audiovisual equipment operator computer device was used throughout the course of her hospitalization for most important medical communication supplemented by her family member (daughter) by phone as needed. DISCHARGE DIAGNOSES: 1. Severe acute calculus cholecystitis, status post laparoscopic cholecystectomy with intraoperative cholangiogram. 2. Incarcerated umbilical hernia (properitoneal fat) concurrently repaired through separate incision on October 17, 2024 without implantation of mesh. Defect size 2 cm 3. Obesity. Electronically Signed By: GENEVIEVE BUCKLEY MD 10/19/24 1520 PATIENT NAME: ENOCH BLEDSOE DISCHARGE SUMMARY DATE OF : 74 REPORT #: [id number] PHYSICIAN: GENEVIEVE BUCKLEY MD PCP: ONI SOUSA MD REPORT IS CONFIDENTIAL AND NOT TO BE RELEASED WITHOUT AUTHORIZATION [address] [address] Signed 4. Asymptomatic bradycardia of uncertain etiology; no adverse effects during general anesthesia for cholecystectomy. 5. Gastroesophageal reflux. MD YRIS Rivera/PEACEL /[id number] cc: MD Dr. Sarita Bey Copies: ONI SOUSA MD ~ Electronically Signed By: GENEVIEVE BUCKLEY MD 10/19/24 1520 PATIENT NAME: SUZANNE BRADSHAWENOCH DISCHARGE SUMMARY DATE OF : 74 REPORT #: [id number] PHYSICIAN: GENEVIEVE BUCKLEY MD PCP: ONI SOUSA MD REPORT IS CONFIDENTIAL AND NOT TO BE RELEASED WITHOUT AUTHORIZATION
--- NOTE | 2024-10-19 18:25 | EKG ---
[facility] [address] [facility] [place] [address] Signed Normal sinus rhythm Low voltage QRS Prolonged QT Abnormal ECG When compared with ECG of 16-OCT-2024 11:24, Vent. rate has increased BY 45 BPM QT has lengthened Confirmed by Konrad Noel MD ([id number]) on 10/19/2024 6:25:32 PM Electronically Signed By: KONRAD NOEL MD 10/19/241824 PATIENT NAME: SUZANNE BRADSHAWENOCH Electrocardiogram DATE OF : 74 PHYSICIAN: KONRAD NOEL MD REPORT #: [id number] REPORT IS CONFIDENTIAL AND NOT TO BE RELEASED WITHOUT AUTHORIZATION
--- NOTE | 2024-10-19 18:26 | EKG ---
[facility] [address] [facility] [place] [address] Signed Normal sinus rhythm Low voltage QRS Borderline ECG When compared with ECG of 17-OCT-2024 13:40, (Unconfirmed) QT has shortened Confirmed by Konrad Noel MD ([id number]) on 10/19/2024 6:26:42 PM Electronically Signed By: KONRAD NOEL MD 10/19/24 1826 PATIENT NAME: SUZANNE BRADSHAWENOCH Electrocardiogram DATE OF : 74 PHYSICIAN: KONRAD NOEL MD REPORT #: [id number] REPORT IS CONFIDENTIAL AND NOT TO BE RELEASED WITHOUT AUTHORIZATION
== END 2024-10-18 11:41 | disposition home or self-care (01) | DRG 418 ==
LOC: ED 18:17 → MS 18:18
PROVIDERS: Emergency Medicine; Student in an Organized Health Care Education/Training Program; ADMIT Surgery; ATTEND Surgery
PROC: 0WQF4ZZ Repair Abdominal Wall, Percutaneous Endoscopic Approach (ICD-10-PCS; 2024-10-17)
PROC: BF532Z0 Other Imaging of Gallbladder and Bile Ducts using Fluorescing Agent, Intraoperative (ICD-10-PCS; 2024-10-17)
PROC: 0FT44ZZ Resection of Gallbladder, Percutaneous Endoscopic Approach (ICD-10-PCS; principal; 2024-10-17 15:00)
DX: K80.00 Calculus of gallbladder with acute cholecystitis without obstruction (principal); K42.0 Umbilical hernia with obstruction, without gangrene; K21.9 Gastro-esophageal reflux disease without esophagitis; R00.1 Bradycardia, unspecified; F10.10 Alcohol abuse, uncomplicated; E66.9 Obesity, unspecified; Z79.899 Other long term (current) drug therapy; Z79.891 Long term (current) use of opiate analgesic
CPT/HCPCS: 36415; 71045; 74300; 76705; 80053; 81001; 83690; 83735; 84439; 84443; 84703; 85025; 93005; 93010; 93306; 94762; 96375; 96376; A9270; G0378; J0131; J0461; J0690; J1100; J1171; J1885; J2003; J2310; J2405; J2704; J3010; J3490; J7030; J7121; Q9967